=== PATIENT | male | born 1990 | race Two or more races ===

== ENCOUNTER 2017-08-30 11:57 | Inpatient (IN) | payer OTHER ==
[~2017-08-30] VITALS: Ht 177.8 cm; Wt 65.8 kg
[2017-08-30] MEDS ORDERED: CYCLOBENZAPRINE HCL 10 MG TABLET ONE (12:10)
[2017-08-30] MEDS ORDERED: KETOROLAC TROMETHAMINE 60 MG INJ IM ONE ×2 (12:11→12:15)
[2017-08-30] MEDS ORDERED: CYCLOBENZAPRINE HCL 10 MG TABLET PO ONE (12:15)
--- NOTE | 2017-08-30 12:16 | NUR ---
PATIENT WAS SEEN BY MD FOR C/O HIP PAIN AFTER FALL. FLEXERIL GIVEN ORDERED. PATIENT STATES HE TOOK ADVIL ABOUT AN HOUR AGO AND FEELS "OK" NOW AND WILL WAIT TO RCEIVE THE TORADOL. DR CARBAJAL INFORMED.
--- NOTE | 2017-08-30 12:55 | NUR ---
DR CARBAJAL AT BEDSIDE SPEAKING TO PATIENT AND FAMILY ABOUT TEST RESULTS AND PLAN OF CARE.
[2017-08-30 13:06] LABS: BASOPHILS % (AUTO) 0.3 % (0.0-2.0); EOSINOPHILS % (AUTO) 0.3 % (0.0-7.0); HEMATOCRIT 45.8 % (36.7-47.1); HEMOGLOBIN 15.4 g/dL (12.5-16.3); LYMPHOCYTES # (AUTO) 1.1 K/uL (20.0-40.0); LYMPHOCYTES % (AUTO) 11.7 % (20.5-51.5); MEAN CORPUSCULAR HEMOGLOBIN 28.1 uug (23.8-33.4); MEAN CORPUSCULAR HGB CONC 34 g/dL (32.5-36.3); MEAN CORPUSCULAR VOLUME 83.4 fL (73.0-96.2); MONOCYTES # (AUTO) 0.6 K/uL (2.0-10.0); MONOCYTES % (AUTO) 7.1 % (0.0-11.0); NEUTROPHILS # (AUTO) 7.3 K/uL (1.8-8.9); NEUTROPHILS % (AUTO) 80.6 % (38.5-71.5); PLATELET COUNT (AUTO) 166 K/uL (152-348); RED BLOOD CELL COUNT(AUTO) 5.49 MIL/uL (4.06-5.63); WHITE BLOOD COUNT (AUTO) 9.1 K/uL (3.6-10.2)
--- NOTE | 2017-08-30 13:06 | NUR ---
Paged DR Bearden(Ortho) per Md request.
[2017-08-30] MEDS ORDERED: MAGNESIUM HYDROXIDE 30 ML LIQUID UDC PO PRN (13:15)
[2017-08-30] MEDS ORDERED: Z GUARD REMEDY PASTE 57 GM TUBE TOP PRN (13:15)
[2017-08-30] MEDS ORDERED: MORPHINE SULFATE 2 MG/1 ML DISP.SYRIN IV PRN (13:15)
[2017-08-30] MEDS ORDERED: ONDANSETRON 4 MG/2 ML VIAL IV PRN (13:15)
[2017-08-30] MEDS ORDERED: HYDROMORPHONE 1 MG/1 ML DISP.SYRIN IV PRN ×2 (13:15→17:15)
--- NOTE | 2017-08-30 13:22 | NUR ---
PATIENT STATES HIS PAIN IS OK AND TORADOL WAS NOT GIVEN
[2017-08-30 13:29] LABS: CREATININE 1.1 mg/dL (0.6-1.3); POTASSIUM 3.7 mmol/L (3.5-5.1)
--- NOTE | 2017-08-30 13:58 | NUR ---
DR COX ON THE PHONE WITH DR CARBAJAL. PATIENT REMAINS NPO PER DR OCX.
--- NOTE | 2017-08-30 14:06 | NUR ---
REPORT GIVEN TO LUDMILA HANKS. PATIENT TO GO TO CT SCAN THEN BE ADMITTED TO THE HOSPITAL. PATIENTI S AWAKE AND ALERT WITH NO NEW COMPLAINTS. STATES PAIN IS TOLERABLE AT THIS TIME.
--- NOTE | 2017-08-30 14:07 | NUR ---
PATIENT STATED HE STILL DID NOT WANT THE TORADOL.
[2017-08-30 14:30] VITALS: BP 106/67
--- NOTE | 2017-08-30 14:30 | NUR ---
PATIENT TRANSFERRED INTO MED-SURG UNIT FROM ER AT THIS TIME IN STABLE CONDITION, VITAL SIGNS TAKEN AND STABLE. NO BRUISING NOTED IN FRACTURED RIGHT HIP. PATIENT VERBALIZES PAIN EXPERIENCED ONLY DURING MOVEMENT. PATIENT VERBALIZES THAT HE DOES NOT EXPERIENCE ANY PAIN WHEN RIGHT HIP IS AT REST. BELONGINGS CHECKLIST CHECKED AND SIGNED. ID BAND PLACED. NPO STATUS IMPLEMENTED. IV FLUIDS STARTED. FAMILY AT BEDSIDE. BED IN LOCKED/LOW POSITION, SIDE RAILS UP X2, CALL LIGHT WITHIN REACH.
[2017-08-30] MEDS ORDERED: MORPHINE SULFATE 4 MG/1 ML DISP.SYRIN IV PRN (15:00)
[2017-08-30] MEDS: IV D5 1/2 NS 1000 ML 1,000 ML IV PRN (15:00)
[2017-08-30] MEDS ORDERED: HYDROMORPHONE 2 MG/1 ML DISP.SYRIN IV PRN ×2 (15:45)
--- NOTE | 2017-08-30 18:19 | NUR ---
SURGERY FOR PATIENT IS TRYING TO BE SCHEDULED FOR 730AM ON 08/31/17 BUT IS NOT YET CONFIRMED. DR. COX SPOKE WITH PATIENT. PROCEDURE CONSENT SIGNED BY PATIENT FOR 'ORIF RIGHT FEMORAL NECK FRACTURE'
[2017-08-30 18:20] LABS: BASOPHILS % (AUTO) 0.2 % (0.0-2.0); EOSINOPHILS % (AUTO) 0.1 % (0.0-7.0); HEMATOCRIT 44.2 % (36.7-47.1); HEMOGLOBIN 15.1 g/dL (12.5-16.3); LYMPHOCYTES # (AUTO) 0.7 K/uL (20.0-40.0); LYMPHOCYTES % (AUTO) 7.6 % (20.5-51.5); MEAN CORPUSCULAR HEMOGLOBIN 28.3 uug (23.8-33.4); MEAN CORPUSCULAR HGB CONC 34 g/dL (32.5-36.3); MEAN CORPUSCULAR VOLUME 82.9 fL (73.0-96.2); MONOCYTES # (AUTO) 0.7 K/uL (2.0-10.0); MONOCYTES % (AUTO) 7.5 % (0.0-11.0); NEUTROPHILS # (AUTO) 8.2 K/uL (1.8-8.9); NEUTROPHILS % (AUTO) 84.6 % (38.5-71.5); PLATELET COUNT (AUTO) 141 K/uL (152-348); RED BLOOD CELL COUNT(AUTO) 5.33 MIL/uL (4.06-5.63); WHITE BLOOD COUNT (AUTO) 9.7 K/uL (3.6-10.2)
--- NOTE | 2017-08-30 19:00 | NUR ---
RECEIVED PATIENT IN BED ALERT ORIENTED, NO COMPLAIN OF PAIN NOR DISCOMFORT, FAMILY AT BEDSIDE..
[2017-08-30] MEDS: ACETAMINOPHEN 325 MG TABLET PO PRN (19:55)
[2017-08-30] MEDS: DOCUSATE SODIUM 100 MG CAPSULE PO SCH (19:57)
[2017-08-30 20:47] VITALS: BP 117/69
[2017-08-30 21:30] LABS: *BILIRUBIN,URIN NEGATIVE (NEGATIVE); *BLOOD, URINE NEGATIVE (NEGATIVE); *COLOR,URINE YELLOW (YELLOW); *KETONES,URINE NEGATIVE (NEGATIVE); *PROTEIN,URINE NEGATIVE (NEGATIVE); *UROBILINOGEN,URINE 0.2 E.U./dl (NORMAL); LEUKOCYTE ESTERASE ,URINE NEGATIVE (NEGATIVE); NITRITE, URINE NEGATIVE (NEGATIVE); PH,URINE 7.5 (5.0-8.0); UGLUCOSE NEGATIVE (NEGATIVE)
[2017-08-30 21:41] LABS: *CLARITY,URINE SLIGHTLY HAZY (CLEAR)
[2017-08-30 21:42] LABS: MUCUS,URINE MODERATE /LPF (0-FEW); SQUAMOUS EPITHELIAL CELL,UR FEW /HPF (NONE SEEN); URINE AMORPHOUS PHOSPHATES MODERATE /HPF; WBC,URINE 0-3 /HPF (0-3)
[2017-08-31 00:32] LABS: BASOPHILS % (AUTO) 0.3 % (0.0-2.0); EOSINOPHILS # (AUTO) 0.1 K/uL (0.0-0.7); EOSINOPHILS % (AUTO) 0.7 % (0.0-7.0); HEMATOCRIT 42.9 % (36.7-47.1); HEMOGLOBIN 14.5 g/dL (12.5-16.3); LYMPHOCYTES # (AUTO) 1.1 K/uL (20.0-40.0); LYMPHOCYTES % (AUTO) 14.5 % (20.5-51.5); MEAN CORPUSCULAR HEMOGLOBIN 28.1 uug (23.8-33.4); MEAN CORPUSCULAR HGB CONC 34 g/dL (32.5-36.3); MEAN CORPUSCULAR VOLUME 82.9 fL (73.0-96.2); MONOCYTES # (AUTO) 0.7 K/uL (2.0-10.0); NEUTROPHILS # (AUTO) 5.5 K/uL (1.8-8.9); NEUTROPHILS % (AUTO) 74.5 % (38.5-71.5); PLATELET COUNT (AUTO) 140 K/uL (152-348); RED BLOOD CELL COUNT(AUTO) 5.17 MIL/uL (4.06-5.63); WHITE BLOOD COUNT (AUTO) 7.4 K/uL (3.6-10.2)
[2017-08-31] MEDS: IV D5 1/2 NS 1000 ML 1,000 ML IV PRN (03:58)
[2017-08-31] MEDS: ACETAMINOPHEN 325 MG TABLET PO PRN (04:00)
[2017-08-31 05:59] VITALS: BP 109/61
[2017-08-31 06:10] LABS: BASOPHILS % (AUTO) 0.2 % (0.0-2.0); EOSINOPHILS # (AUTO) 0.1 K/uL (0.0-0.7); EOSINOPHILS % (AUTO) 1.6 % (0.0-7.0); HEMATOCRIT 45.2 % (36.7-47.1); HEMOGLOBIN 15.1 g/dL (12.5-16.3); LYMPHOCYTES # (AUTO) 0.9 K/uL (20.0-40.0); LYMPHOCYTES % (AUTO) 13.2 % (20.5-51.5); MEAN CORPUSCULAR HEMOGLOBIN 28.1 uug (23.8-33.4); MEAN CORPUSCULAR HGB CONC 33 g/dL (32.5-36.3); MEAN CORPUSCULAR VOLUME 83.9 fL (73.0-96.2); MONOCYTES # (AUTO) 0.6 K/uL (2.0-10.0); MONOCYTES % (AUTO) 8.5 % (0.0-11.0); NEUTROPHILS # (AUTO) 5.5 K/uL (1.8-8.9); NEUTROPHILS % (AUTO) 76.5 % (38.5-71.5); PLATELET COUNT (AUTO) 141 K/uL (152-348); RED BLOOD CELL COUNT(AUTO) 5.39 MIL/uL (4.06-5.63); WHITE BLOOD COUNT (AUTO) 7.2 K/uL (3.6-10.2)
[2017-08-31 06:24] LABS: CREATININE 1.2 mg/dL (0.6-1.3); PHOSPHOROUS 3.5 mg/dL (2.5-4.9); POTASSIUM 3.9 mmol/L (3.5-5.1)
[2017-08-31 06:32] LABS: THYROID STIMULATING HORMONE 1.963 mIU/mL (0.358-3.740)
[2017-08-31] MEDS: PANTOPRAZOLE SODIUM 40 MG VIAL IV SCH (07:09)
[2017-08-31] MEDS ORDERED: POLYMYXIN B SULFATE 500,000 UNITS, BACITRACIN 50,000 UNITS, NORMAL SALINE 20 ML MC ONE ×3 (07:15)
--- NOTE | 2017-08-31 07:20 | NUR ---
Pt went down to surgery
[2017-08-31] MEDS ORDERED: FENTANYL CITRATE 100 MCG/2 ML AMPUL ONE (07:22)
[2017-08-31] MEDS ORDERED: MIDAZOLAM HCL 2 MG/2 ML VIAL ONE (07:22)
[2017-08-31] MEDS ORDERED: KETOROLAC TROMETHAMINE 30 MG INJ IM ONE (07:50)
[2017-08-31] MEDS ORDERED: ONDANSETRON 4 MG/2 ML VIAL IV ONE (07:50)
[2017-08-31] MEDS ORDERED: CEFAZOLIN 1 G VIAL IV ONE (07:50)
[2017-08-31] MEDS ORDERED: PROPOFOL 200 MG/20 ML BOTTLE IV ONE (07:50)
[2017-08-31] MEDS ORDERED: DEXAMETHASONE SOD PHOSPHATE 4 MG INJ IV ONE (07:50)
[2017-08-31] MEDS ORDERED: LIDOCAINE-MPF 2% 5 ML VIAL MC ONE (07:50)
[2017-08-31] MEDS ORDERED: SEVOFLURANE 250 ML BOTTLE IH ONE (07:50)
--- NOTE | 2017-08-31 08:46 | NUR ---
PT IS OFF THE FLOOR IN SURGERY Addendum: 08/31/17 at 0847 by CLARITA NEIL RN Amended: Links added.
[2017-08-31] MEDS ORDERED: BUPIVACAINE PF 0.5% 30 ML VIAL ONE (08:49)
--- NOTE | 2017-08-31 09:11 | NUR ---
Pt is off the floor in surgery Addendum: 08/31/17 at 0911 by CLARITA NEIL RN Amended: Links added.
[2017-08-31] MEDS ORDERED: MORPHINE SULFATE 4 MG/1 ML DISP.SYRIN IV PRN (09:45)
--- NOTE | 2017-08-31 10:10 | NUR ---
Received pt back from surgery. No pain stated by pt, no distress, discomfort or SOB.
[2017-08-31 10:20] VITALS: BP 113/61
[2017-08-31 12:00] VITALS: BP 119/66
[2017-08-31 12:04] LABS: BASOPHILS % (AUTO) 0.2 % (0.0-2.0); EOSINOPHILS # (AUTO) 0.1 K/uL (0.0-0.7); EOSINOPHILS % (AUTO) 0.9 % (0.0-7.0); HEMATOCRIT 45.6 % (36.7-47.1); HEMOGLOBIN 15.3 g/dL (12.5-16.3); LYMPHOCYTES # (AUTO) 0.4 K/uL (20.0-40.0); LYMPHOCYTES % (AUTO) 4.9 % (20.5-51.5); MEAN CORPUSCULAR HEMOGLOBIN 28.2 uug (23.8-33.4); MEAN CORPUSCULAR HGB CONC 34 g/dL (32.5-36.3); MEAN CORPUSCULAR VOLUME 84.1 fL (73.0-96.2); MONOCYTES # (AUTO) 0.3 K/uL (2.0-10.0); NEUTROPHILS # (AUTO) 7.8 K/uL (1.8-8.9); PLATELET COUNT (AUTO) 149 K/uL (152-348); RED BLOOD CELL COUNT(AUTO) 5.42 MIL/uL (4.06-5.63); WHITE BLOOD COUNT (AUTO) 8.6 K/uL (3.6-10.2)
--- NOTE | 2017-08-31 12:30 | NUR ---
Called Dr. Bearden for clarifications of orders whether to start PT today or tomorrow as requested by TECHNICAL SUPPORT INTERN
--- NOTE | 2017-08-31 13:20 | NUR ---
Informed by helpdesk analyst that Dr Bearden called back ordering to start PT today. Physical therapist aware. SCREW MACHINE OPERATOR aware
--- NOTE | 2017-08-31 13:55 | NUR ---
Informed by PT that the pt was able to ambulate as ordered. Pt stated no pain per PT. Pt was able to walk about 12-13 steps with walker per PT.
[2017-08-31 15:47] VITALS: BP 111/62
[2017-08-31] MEDS: CEFAZOLIN 1 G in PREMIXED 1 EACH IV SCH ×2 (16:49→23:42)
[2017-08-31] MEDS: POTASSIUM CHLORIDE 20 MEQ in IV D5 1/2 NS 1000 ML 1,000 ML IV PRN (16:49)
[2017-08-31] MEDS: HYDROCODONE/APAP 10-325 MG TABLET PO PRN ×2 (19:20→23:03)
[2017-08-31 19:28] VITALS: BP 113/59
--- NOTE | 2017-08-31 19:30 | NUR ---
[place] given for right hip pain. Family by bedside. Pt's mother will stay overnight. No s/s of SOB, distress or discomfort. Pt has been compliant with nursing care and medication.
--- NOTE | 2017-08-31 19:30 | NUR ---
Received pt lying in bed. Family member at bedside. In no acute distress. Denies any pain at this time. Right hip with dressing intact. iv site on right AC intact and patent. IVF infusing. Safety measure initiated and call lala within reach.
[2017-08-31] MEDS: DOCUSATE SODIUM 100 MG CAPSULE PO SCH (20:20)
[2017-09-01 03:40] VITALS: BP 112/60
[2017-09-01] MEDS: PANTOPRAZOLE SODIUM 40 MG VIAL IV SCH (06:07)
--- NOTE | 2017-09-01 06:20 | NUR ---
AAOx4. Pain on right hip manage with [place] PRN per order. Dressing on right hip remains intact, with minimal blood noted on dressing. In no acute distress. VS WNL. IV site on right AC remains intact and patent. IVF infusing. No adverse reaction noted from IV ABX. Instructed in using incentive spirometer and states understanding. Pt mother at bedside. Safety measure maintained and call lala within reach.
[2017-09-01 06:22] LABS: BASOPHILS % (AUTO) 0.2 % (0.0-2.0); EOSINOPHILS # (AUTO) 0.3 K/uL (0.0-0.7); EOSINOPHILS % (AUTO) 3.8 % (0.0-7.0); HEMATOCRIT 38.6 % (36.7-47.1); LYMPHOCYTES # (AUTO) 1.6 K/uL (20.0-40.0); MEAN CORPUSCULAR HEMOGLOBIN 28.4 uug (23.8-33.4); MEAN CORPUSCULAR HGB CONC 34 g/dL (32.5-36.3); MEAN CORPUSCULAR VOLUME 84.2 fL (73.0-96.2); MONOCYTES # (AUTO) 0.7 K/uL (2.0-10.0); MONOCYTES % (AUTO) 10.1 % (0.0-11.0); NEUTROPHILS # (AUTO) 4.4 K/uL (1.8-8.9); NEUTROPHILS % (AUTO) 62.9 % (38.5-71.5); PLATELET COUNT (AUTO) 121 K/uL (152-348); RED BLOOD CELL COUNT(AUTO) 4.58 MIL/uL (4.06-5.63); WHITE BLOOD COUNT (AUTO) 7.1 K/uL (3.6-10.2)
[2017-09-01 06:31] LABS: CREATININE 1.3 mg/dL (0.6-1.3)
--- NOTE | 2017-09-01 07:30 | NUR ---
Pt awake in bed AAOx4. Mom is by bedside. No s/s of SOB, pain, distress or discomfort. Bed at lowest position for safety
[2017-09-01] MEDS: POTASSIUM CHLORIDE 20 MEQ in IV D5 1/2 NS 1000 ML 1,000 ML IV PRN (07:38)
[2017-09-01] MEDS: HYDROCODONE/APAP 10-325 MG TABLET PO PRN (08:22)
--- NOTE | 2017-09-01 08:25 | NUR ---
Pt was premedicated for Physical therapy
[2017-09-01] MEDS ORDERED: DOCU100C36 PO (10:56)
[2017-09-01] MEDS ORDERED: HYDR-3326 PO (10:56)
[2017-09-01 11:28] VITALS: BP 113/62
--- NOTE | 2017-09-01 11:54 | NUR ---
Appointment made with Dr. Bearden on MondaySeptember 914. Family will call the office to update phone number in order to confirm appointment. Family is aware that the patient will need to bring ID and insurance. PT reached and is aware that the second physical therapy session will be after lunch. Case management will explain Home Health, RN evaluation, PT evaluation and front wheel walker orders
[2017-09-01 15:10] VITALS: BP 118/68
--- NOTE | 2017-09-01 15:18 | NUR ---
Pt was discharged with family. Pt states no pain at this time, no immediate s/s of SOB, distress, discomfort. Pt was wheeled down to lobby where the pt left in family care accompanied by mom, dad, and sister
[2017-09-02] MEDS ORDERED: PANTOPRAZOLE SODIUM 40 MG TABLET.DR PO SCH (07:00)
== END 2017-09-01 15:15 | disposition home health service (06) | DRG 481 ==
LOC: ER 11:57 → MED 14:08
PROVIDERS: ADMIT Registered Nurse; ATTEND Registered Nurse
PROC: 0QS604Z Reposition Right Upper Femur with Internal Fixation Device, Open Approach (ICD-10-PCS; principal; 2017-08-30)
DX: S72.031A Displaced midcervical fracture of right femur, initial encounter for closed fracture (principal); D68.59 Other primary thrombophilia; I15.8 Other secondary hypertension; W01.0XXA Fall on same level from slipping, tripping and stumbling without subsequent striking against object, initial encounter; Y92.89 Other specified places as the place of occurrence of the external cause; Z83.3 Family history of diabetes mellitus; Z82.49 Family history of ischemic heart disease and other diseases of the circulatory system; L70.9 Acne, unspecified
CPT/HCPCS: 36415; 71045; 73502; 73503; 73700; 76000; 83735; 84100; 84443; 85025; 85730; 93005; 97110; 97116; 97530; A4649; A4663; C1713; C9113; J0690; J1100; J1885; J2250; J2270; J2405; J3010; J3480; J3490